=== PATIENT | male | born 1990 ===

== ENCOUNTER 2017-02-07 11:26 | Emergency (ER) | payer BC, OTHER ==
[2017-02-07 11:28] VITALS: TEMP 98
[2017-02-07 11:29] VITALS: BMI 28.8
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
[2017-02-07 12:09] LABS: ABG ALLEN TEST YES; ARTERIAL BLOOD GAS HCO3 28.3 mmol/L (21-28); ARTERIAL BLOOD GAS O2 CAPACITY 19.7 mL/dL (16-24); ARTERIAL BLOOD GAS O2 CONTENT 19.6 ML/dL (15-23); ARTERIAL BLOOD GAS PH 7.44 (7.35-7.45); ARTERIAL BLOOD GAS PO2 103 mm/Hg (80-100); ARTERIAL BLOOD HGB O2 SAT 95.5 % (95.0-98.0); CARBOXYHEMOGLOBIN 2.4 % (0.5-1.5); HHB 0.3 % (0.0-5.0); METHEMOGLOBIN 1.8 % (0.0-3.0)
--- NOTE | 2017-02-07 13:05 | CARD ---
APPROVED REPORT EKG Measurement Heart [id number] <Conclusion> Normal sinus rhythm Early repolarization Normal ECG
[2017-02-07 15:35] VITALS: BP 139/73; PULSE 67; RESP 13; O2SAT 96
== END 2017-02-07 15:31 | disposition home or self-care (01) ==
LOC: H.ER 11:26
DX: J70.5 Respiratory conditions due to smoke inhalation (principal); Y99.0 Civilian activity done for income or pay